=== PATIENT | male | born 1975 | race Caucasian/White ===

== ENCOUNTER 2022-09-05 01:04 | Day surgery (SDC) | payer BC, SELFPAY ==
[2022-08-25 13:23] VITALS: BMI 26.6
[2022-09-05 08:35] VITALS: BP 117/84; PULSE 65; RESP 18; TEMP 36.9; O2SAT 100
[2022-09-05] MEDS: LACTATED RINGERS 1,000 ML 150 ML IV CONT (08:44)
--- NOTE | 2022-09-05 09:05 | P.PNAN_ITS ---
Anes - Initial Pre Proc Eval Procedure: Operation Date: 09/05/22 10:00 Proposed Procedures p Screening Colonoscopy - Ahsan Rose MD Date/Time: 09/05/22 09:05 Surgeon: Ahsan Rose MD Pre Op Diagnosis: neoplasm screening Patient Data Age: 47 Gender: M Height: 1.75 m Weight: 78.4 kg Last Vital Signs Temp 36.9 C 09/05/22 08:35 Pulse 65 09/05/22 08:35 Resp 18 09/05/22 08:35 BP 117/84 09/05/22 08:35 Pulse Ox 100 09/05/22 08:35 O2 Del Method Room Air 09/05/22 08:35 Allergies Allergy/AdvReac Type Severity Reaction Status Date / Time No Known Allergies Allergy Unknown Verified 09/05/22 08:33 Home Medications Medication Instructions Recorded Confirmed Type multivitamin 1 tablet PO DAILY 08/26/22 08/26/22 History Patient hx anesthesia problems: none Family hx anesthesia problems: none Results Review: All pre-operative results and documents have been reviewed as part of the pre- operative evaluation. PMF Social History Social History Smoking status: Light tobacco smoker Tobacco type: cigarettes Additional smoking assessment comments: off and on; occasional use Living arrangements: with family Anes - Eval Final PreProcedure Day of Procedure 09/05/22 09:05 Patient weight: overweight Heart: regular rate and rhythm Lungs: clear to auscultation and normal air movement Airway: Mallampati scale class II Neurological: alert and oriented Last oral intake: >/= 8 hours ASA classification: II Emergent: no Anesthetic plan: proceed Anesthesia type and monitoring: general GIVS Results Review: All pre-operative results and documents have been reviewed as part of the pre- operative evaluation. Informed Consent: The patient's anesthetic plan and its attendant risks and benefits were discussed with the patient/family/POA. Questions were solicited and answers provided to the satisfaction of the patient/family/POA.
--- NOTE | 2022-09-05 09:20 | P.HP_ITS ---
History of Present Illness History of Present Illness Consent: Risks, benefits, and alternatives have been discussed and questions answered. Patient agrees to proceed with procedure. Chief complaint: neoplasm screening Narrative: Vinicio Murray is a 47 year old male Presents for screening colonoscopy. Patient's current weight appetite bowel movements are normal. Patient denies abdominal pain. He has had no bleeding. Family history is significant that it grandfather had colon cancer. There are no first-degree relatives that we are aware of with colon polyps or cancer. Review of Systems Review of Systems: Review of systems noncontributory. [facility] Social History Social History Smoking status: Light tobacco smoker Tobacco type: cigarettes Additional smoking assessment comments: off and on; occasional use Living arrangements: with family Meds Home Medications and Allergies Home Medications Medication Instructions Recorded Confirmed Type multivitamin 1 tablet PO DAILY 08/26/22 08/26/22 History Allergies Allergy/AdvReac Type Severity Reaction Status Date / Time No Known Allergies Allergy Unknown Verified 09/05/22 08:33 Vital Signs Vital Signs - 24 hr 09/05/22 08:35 Temperature 98.4 F Pulse Rate 65 Respiratory Rate 18 Blood Pressure 117/84 Pulse Oximetry 100 Oxygen Delivery Room Air Exam Narrative: Physical exam reveals patient to be alert. Vital signs stable. HEENT exam is unremarkable. Patient is anicteric. Lungs are clear to auscultate patient and percussion. Heart is without murmur or extra sounds. Abdomen bowel sounds are present soft nontender with no organomegaly. Digital external rectal exam is normal. Assessment and Plan Assessment and plan (1) Encounter for screening colonoscopy: Code(s): Z12.11 - Encounter for screening for malignant neoplasm of colon Status: Acute Assessment and Plan: Patient presents today for screening colonoscopy. Further recommendations may be given after endoscopy.
[2022-09-05] MEDS: SIMETHICONE ORAL SUSPENSION 20 MG/0.3 ML 30 ML BOTTLE 0.6 ML IRRIGATION (10:03)
[2022-09-05 10:11] VITALS: BP 114/71; PULSE 72; RESP 16; O2SAT 97
[2022-09-05 10:21] VITALS: BP 123/78; PULSE 69; RESP 16; O2SAT 98
[2022-09-05 10:31] VITALS: BP 125/73; PULSE 67; RESP 20; O2SAT 100
== END 2022-09-05 10:40 | disposition home or self-care (01) ==
PROVIDERS: PCP Nurse Practitioner Family; Visit Provider Internal Medicine Gastroenterology
PROC: 0DJD8ZZ Inspection of Lower Intestinal Tract, Via Natural or Artificial Opening Endoscopic (ICD-10-PCS; CPT 45378; principal; 2022-09-05 10:00)
DX: Z12.11 Encounter for screening for malignant neoplasm of colon (principal); K62.1 Rectal polyp; K64.8 Other hemorrhoids; Z72.0 Tobacco use
CPT/HCPCS: 45385; 88305; J2704; J7120

== ENCOUNTER 2025-04-25 17:30 | Emergency (ER) | payer BC, SELFPAY ==
--- NOTE | ~2025-04-25 | CT_ITS ---
CT brain wo con HISTORY:dizziness COMPARISON: None. TECHNIQUE: Axial images were obtained of the head without intravenous contrast. FINDINGS: No acute intracranial hemorrhage, mass effect or midline shift. No extra-axial fluid collections. The calvarium is intact. Visualized paranasal sinuses and mastoid air cells are clear. IMPRESSION: No acute intracranial hemorrhage or extra axial fluid collections. All CT scans at this facility are performed using low dose modulation techniques as appropriate to perform exam including the following: automated exposure control; use of iterative reconstruction technique; adjustment of the mA and/or kV according to patient size (this includes techniques or standardized protocols for targeted exams where dose is matched to indication/reason for exam). Reviewed, dictated and finalized at location S. NG HOST IMPRESSION: No acute intracranial hemorrhage or extra axial fluid collections. All CT scans at this facility are performed using low dose modulation techniqu es as appropriate to perform exam including the following: automated exposure c ontrol; use of iterative reconstruction technique; adjustment of the mA and/or kV according to patient size (this includes techniques or standardized protocol s for targeted exams where dose is matched to indication/reason for exam).
--- NOTE | 2025-04-25 18:04 | ECG_ITS ---
Test Date: 2025-04-25 18:36:28 Measurements Intervals [place] Rate: 71 P: 12 SD: 139 QRS: 19 QRSD: 93 T: 23 QT: 392 QTc: 427 Interpretive Statements SINUS RHYTHM No previous ECG available for comparison Electronically Signed On 04-26-2025 10:51:44 TRACK BROOM OPERATOR by Shoaib Barirentos D.O
[2025-04-25 18:09] VITALS: BP 113/78; PULSE 73; RESP 16; TEMP 36.6; O2SAT 98
[2025-04-25 18:16] VITALS: PULSE 73
[2025-04-25 18:39] LABS: Hematocrit 43.0 % (42.0-52.0); Hemoglobin 14.5 g/dL (14.0-18.0); Immature Granulocyte Percent A 0.1 % (0-0.5); Lymphocytes Absolute Auto 2.71 K/mm3 (0.9-3.2); Mean Corpuscular HGB Conc 33.7 g/dl (32-36); Mean Corpuscular Hemoglobin 29.8 pg (26-34); Mean Corpuscular Volume 88.5 fl (80-100); Nucleated Red Blood Cells Absolute Auto 0.000 K/mm3 (0.0-0.012); Nucleated Red Blood Cells Perc 0.0 % (0.0-0.2); Platelet Count Result 294 k/mm3 (150-375); Red Blood Count 4.86 M/mm3 (4.6-6.20); White Blood Count 7.2 K/mm3 (4.5-10.0)
[2025-04-25 18:50] LABS: Anion Gap 7 mmol/L (4-12); Blood Urea Nitrogen 14 mg/dL (9-20); Calcium 8.7 mg/dL (8.4-10.2); Carbon Dioxide 26 mmol/L (22-30); Chloride 103 mmol/L (98-107); Estimated CRCL calculation 81 ml/min; Estimated Glomerular Filt Rate > 60; Glucose 110 mg/dL (65-110); Potassium 4.3 mmol/L (3.4-5.0); Sodium 136 mmol/L (137-145)
--- NOTE | 2025-04-25 19:36 | ED_ITS ---
HPI - Dizziness General Chief Complaint: Dizziness Stated Complaint: lightheaded, dizzy, blurred vision Time Seen by Provider: 04/25/25 17:48 Source: patient and family Mode of arrival: ambulatory Limitations: no limitations History of Present Illness HPI Narrative: 50-year-old otherwise healthy here with a complains of sudden onset of dizziness. Patient states every time he turns in certain direction he gets extremely dizzy associated with mild nausea however by the time he got to the ER his symptoms have subsided. He denies any chest pain or shortness of breath. No motor weakness. No previous history of stroke. MD elicited complaint: vertigo Onset (ago): day(s) (1) Timing: sudden onset Severity: moderate Description: sense of movement, room spinning and off-balance History of similar symptoms: No Exacerbating factors: movement/ambulation Relieving factors: remaining still Associated symptoms: denies other symptoms Associated neuro symptoms: other ( Nausea) Stroke scale total: 0 Related Data Home Medications ?Medication ?Instructions ?Recorded ?Confirmed ?Last Taken ?Type multivitamin 1 tablet PO DAILY 08/26/22 0 08/26/22 09/04/22 History Allergies Allergy/AdvReac Type Severity Reaction Status Date / Time No Known Allergies Allergy Unknown Verified 04/25/25 18:16 Review of Systems 2 Review of Systems: All systems reviewed & are unremarkable except as noted in HPI and below Constitutional: Constitutional: Reports no additional constitutional complaints Eyes: Eyes: Reports no additional eye complaints ENT: Reports system reviewed and no additional complaints, except as documented Cardiovascular: Cardiovascular: Reports no additional cardiovascular complaints Respiratory: Respiratory: Reports no additional respiratory complaints Gastrointestinal: Gastrointestinal: Reports no additional gastrointestinal complaints Musculoskeletal: Musculoskeletal: Reports no additional musculoskeletal complaints Neurologic: Reports system reviewed and no additional complaints, except as documented PMFSH Social History Social History Smoking status: Light tobacco smoker Tobacco type: cigarettes Additional smoking assessment comments: off and on; occasional use Living arrangements: with family Exam 2 Narrative: GENERAL: Well-appearing, well-nourished, and in no acute distress. HEAD: Normocephalic, atraumatic. EYES: PERRLA and EOMI. ENT: Nares clear, no rhinorrhea or epistaxis. Mucous membranes moist. NECK: Supple. CHEST: Clear to auscultation. No respiratory distress. HEART: Regular rate and rhythm. No murmur heard. Normal peripheral pulses. ABDOMEN: Soft, nontender, nondistended, normal active bowel sounds. EXTREMITIES: Normal range of motion. No edema. SKIN: Warm, dry, no rash. NEURO: No focal deficits. Alert and oriented x3. PSYCH: Normal mood and affect. Course Course Emergency Course: Patient remained asymptomatic while he was here in the ER had no further episodes of dizziness. I did inform him and his about the lab work, CT findings. He feels comfortable going home. Vital Signs Vital signs: Vital Signs Temperature 36.6 C 04/25/25 18:09 Pulse Rate 73 04/25/25 18:09 Respiratory Rate 16 04/25/25 18:09 Blood Pressure 113/78 04/25/25 18:09 Pulse Oximetry 98 04/25/25 18:09 Oxygen Delivery Room Air 04/25/25 18:09 Temperature 36.6 C 04/25/25 18:09 Pulse Rate 73 04/25/25 18:16 Respiratory Rate 16 04/25/25 18:09 Blood Pressure 113/78 04/25/25 18:09 Pulse Oximetry 98 04/25/25 18:09 Oxygen Delivery Room Air 04/25/25 18:09 MDM - Dizziness Differential Diagnosis Differential diagnosis: Likely benign paroxysmal positional vertigo, orthostatic hypotension, vertebral basilar insufficiency, cerebrovascular accident and acute vestibular neuronitis Medical Records Attestation: I reviewed the patient's medical records. Lab Data Attestation: I reviewed the patient's lab results. 04/25/25 18:32 04/25/25 18:32 Labs: Lab Results 04/25/25 Range/Units 18:32 WBC 7.2 (4.5-10.0) K/mm3 RBC 4.86 (4.6-6.20) M/mm3 Hgb 14.5 (14.0-18.0) g/dL Hct 43.0 (42.0-52.0) % MCV 88.5 (80-100) fl MCH 29.8 (26-34) pg MCHC 33.7 (32-36) g/dl RDW 12.8 (11.5-14.5) % Plt Count 294 (150-375) k/mm3 MPV 8.9 (7.4-10.4) fl Immature Gran % (Auto) 0.1 (0-0.5) % Neut % (Auto) 48.2 (45.5-73.1) % Lymph % (Auto) 37.7 (18.3-44.2) % [place] % (Auto) 7.8 (2.6-8.5) % Eos % (Auto) 5.2 H (0-4.4) % Baso % (Auto) 1.0 (0.2-1.2) % Lymph # (Auto) 2.71 (0.9-3.2) K/mm3 [place] # (Auto) 0.6 (0.1-0.6) K/mm3 Eos # (Auto) 0.4 H (0-0.3) K/mm3 Baso # (Auto) 0.1 (0.0-0.1) K/mm3 Abs Immat Gran (auto) 0.01 (0.00-0.031) K/mm3 Absolute Neuts (auto) 3.5 (1.3-6.7) K/mm3 Absolute Nucleated RBC 0.000 (0.0-0.012) K/mm3 Nucleated RBC % 0.0 (0.0-0.2) % Sodium 136 L (137-145) mmol/L Potassium 4.3 (3.4-5.0) mmol/L Chloride 103 (98-107) mmol/L Carbon Dioxide 26 (22-30) mmol/L Anion Gap 7 (4-12) mmol/L BUN 14 (9-20) mg/dL Creatinine 1.02 (0.7-1.3) mg/dL Estim Creat Clear Calc 81 ml/min Estimated GFR > 60 (59 - ) Glucose 110 (65-110) mg/dL Calcium 8.7 (8.4-10.2) mg/dL ECG Data EKG #1: ECG completion date: 04/25/25 ECG completion time: 18:36 Ischemic changes: poor r wave progression EKG Interpretation: normal rate (71), sinus rhythm, no ectopy, normal QRS, normal QT and NL axis Discharge Plan Discharge Clinical Impression: Benign paroxysmal positional vertigo Qualifiers: Laterality: unspecified laterality Qualified Code(s): H81.10 - Benign paroxysmal vertigo, unspecified ear Patient Disposition: Home Condition: Stable Instructions: Antibiotic Form, Vertigo (ED) Patient Language: [place] Islander Prescriptions: New meclizine 12.5 mg tablet 12.5 mg PO TID PRN (Reason: dizziness) Qty: 20 0RF No Action multivitamin [Men's Multi-Vitamin] Tablet 1 tablet PO DAILY Follow-up/Referrals: Danilo,MARIE Bhardwaj [Primary Care Provider, Unknown] Time of Disposition: 19:37 Quality Stroke Date of last known normal: 04/25/25 Stroke Scale Stroke Scale 1: Stroke scale date:: 04/25/25 1a Level of consciousness: alert-0 1b Level of consciousness questions: answers both correctly-0 1c Level of consciousness commands: obeys both correctly-0 2 Best gaze: normal-0 3 Visual: no visual loss-0 4 Facial palsy: normal-0 5a Motor: left arm: no drift-0 5b Motor: right arm: no drift-0 6a Motor: left leg: no drift-0 6b Motor: right leg: no drift-0 7 Limb ataxia: absent-0 8 Sensory: normal-0 9 Best language: no aphasia-0 10 Dysarthria: normal-0 11 Extinction and inattention: no abnormality-0 Level:: 0
[2025-04-25 19:57] VITALS: BP 115/76; PULSE 76; RESP 16; O2SAT 99
--- OUTSIDE RECORDS SUMMARY | 2025-04-25 20:23 | XMS_ITS | Patient Health Record ---
Author Organization [facility] As [employer] Address [facility] [address] [facility] [address] [place] [address] Care Team Providers Care Letter Of Credit Document Examiner Name Role Phone Daron Tate Unavailable [phone] Reason For Referral No Information Plan Of Treatment No Information
--- OUTSIDE RECORDS SUMMARY | 2025-04-25 20:23 | XMS_ITS | Clinical Summary ---
Author Organization [facility] [place] [address] [facility] Address [address] [place] [address] Care Team Providers Care Bookmobile Driver Name Role Phone Lashae Carrasco NP Primary Care Provider [phone] Allergies No known active allergies Medications cyanocobalamin (Vitamin B-12) 100 mcg tabletIndicatio ns:Prevention of Vitamin B12 Deficiency Take 100 mcg by mouth daily Active methylPREDNISol one (MEDROL DOSEPACK) 4 mg DosepackIndicat ions:Left sided sciatica Take as directed on package. 21 tablet Active Additional Information Patient not taking.Reported on 02/05/2025 Active Problems Problem Noted Date Diagnosed Date BMI 28.0-28.9,adult 06/30/2022 Assessment & Plan (06/30/2022 3:21 PM SALES AMBASSADOR): Weight/BMI is in healthy range. Continue healthy lifestyle to maintain. Screening for colon cancer 06/30/2022 Encounters Date Type Department Care Team Description 04/25/2025 Orders Only [facility] Family Medicine [address] [place] [address] Lashae Carrasco NP Near syncope (Primary Dx) 04/21/2025 9:00 AM SALES AMBASSADOR Office Visit [facility] Medicine Physicians [facility] Surgery [address] [place] [address] Elevated PSA (Primary Dx) 02/05/2025 9:00 AM CDT [facility] [address] [facility] 11[address] [place] [address] [place] [address] Jax Crawford MD Elevated PSA (Primary Dx) 01/29/2025 Orders Only [facility] [address] [place] [address] ProviderMartin MD 01/23/2025 Results Follow-Up [facility] [address] [place] [address] Lashae Carrasco NP Hemoglobin A1c, Comprehensive metabolic panel, Lipid panel, Additional followed-up results: 3 from Last 3 Months Immunizations Immunization Administration Dates Next Due Influenza, Unspecified 01/16/2025(Deferr ed: Patient Refused),06/14/2021(Deferred: Patient Refused) Surgical History Surgery Date Site/Laterality Comments APPENDECTOMY Family History Medical History Relation Name Comments Hypertension Father Colon cancer Maternal Grandfather Thyroid disease Maternal Grandmother Diabetes Mother Hyperlipidemia Mother Hypertension Mother Diabetes Paternal Grandmother Heart disease Paternal Grandmother Relation Name Status Comments Father Alive Maternal Grandfather Maternal Grandmother Mother Alive Paternal Grandfather Paternal Grandmother Social History Tobacco Use Types Packs/Day Years Used Date Smoking Tobacco: Some Days Cigarettes Smokeless Tobacco: Current Chew Tobacco Cessation:Ready to Q uit: Not Asked; Counseling Given: Not Answered AUDIT-C Answer Date Recorded Q1: How often do you have a drink containing alcohol? Never 01/16/2025 Q2: How many drinks containi ng alcohol do you have on a typical day when you are drinking? Patient does not drink Q3: How often do you have si x or more drinks on one occasion? Never 01/16/2025 PHQ-2 Answer Date Recorded PHQ-2 Total Score (If total score is 3 or more points, staff should administer the PHQ-9) 0 01/16/2025 Sex and Gender Information Value Date Recorded Sex Assigned at Not on file Legal Sex Male 9:58 AM SALES AMBASSADOR Gender Identity Not on file Sexual Orientation Not on file Last Filed Vital Signs Vital Sign Reading Time Taken Comments Blood Pressure 112/62 01/16/2025 4:10 PM CDT Pulse 74 01/16/2025 4:10 PM CDT Temperature 36.9 C (98.4 F) 01/16/2025 4:10 PM CDT Respiratory Rate 18 01/16/2025 4:10 PM CDT Oxygen Saturation 96% 01/16/2025 4:10 PM CDT Inhaled Oxygen Concentration - - Weight 83.6 kg (184 lb 3.2 oz) 01/16/2025 4:10 P M CDT Height 170.9 cm (5' 7.3) 01/16/2025 4:10 PM CDT Body Mass Index 28.59 01/16/2025 4:10 PM CDT Plan of Treatment Health Maintenance Due Date Last Done Comments Hepatitis C Screening 1977 DTaP/Tdap/Td Vaccine (1 - Tdap) 02/03/1988 Hepatitis B Screening 1995 Pneumococcal vaccine <65 (1 of 2 - PCV) 02/03/1996 Regular Well Visit/Exam 18-64 06/30/2023 06/30/2022 Influenza Vaccine (#1) 2025 Depression Screening 01/16/2026 01/16/2025, 06/30/19 23 Colon Cancer Screening-Colonoscopy 09/06/20272022, 09/05/2022 Procedures Procedure Name Priority Date/Time Associated Diagnosis Comments COLONOSCOPY Routine 09/05/2022 from Last 3 Months or Most Recently Relevant to Health Maintenance Results * (ABNORMAL) Colonoscopy (09/05/2022) Anatomical Region Laterality Modality Other us Historical Provider ENDOSCOPY PROCEDURES Edit ed Result - Final from Last 3 Months or Most Recently Relevant to Health Maintenance [place] Care Teams Bookmobile Driver Relationship Specialty Start Date End Date Lashae Carrasco NP PCP - General Internal Medicine 06/23/22
--- OUTSIDE RECORDS SUMMARY | 2025-04-25 20:23 | XMS_ITS | Encounter Summary ---
Author Organization [facility] Address [address] [place] [address] Care Team Providers Care Kitchen And Counter Worker Name Role Phone Lashae Carrasco NP Primary Care Provider [phone] Reason for Referral * Consultation (Routine) - Pending Review Specialty Diagnoses / Procedures Referred By Contgillian t Referred To Contact Cardiology Diagnoses Near syncope Lashae Carrasco NP [address] [place] [address] Phone: tel: fax: Krystina Mcmullen MD [address] [place] [id number] Phone: tel: fax: Referral ID Status Reason Start Date Expiration Date Visits Requested Visits Authorized [id number] Pending Review Specialty Services Required 5 05/25/2026 1 1 Question Answer Please select the performing region: External Order [171] To Provider NOTE: we will do our best to honor your provider preference, but scheduling the patient in a timely manner in our clinic will take precedence. KRYSTINA MCMULLEN [[id number]] # of visits: 1 Comments [facility] Cardiology Near syncope OPERATIVE EDUCATOR Encounter Details Date Type Department Care Team (Late st Contact Info) Description 04/25/2025 Orders Only [facility] Family Medicine [address] [place] [address] Lashae Carrasco NP [address] [facility] [address] [place] [address] Near syncope (Primary Dx) Social History Tobacco Use Types Packs/Day Years Used Date Smoking Tobacco: Some Days Cigarettes Smokeless Tobacco: Current Chew AUDIT-C Answer Date Recorded Q1: How often [...] on file Legal Sex Male 9:58 AM PERIOPERATIVE EDUCATOR Gender Identity Not on file Sexual Orientation Not on file documented as of this encounter Progress Notes * Mara Camacho LPN - 04/25/2025 2:01 PM CST Referral placed per PCP OPERATIVE EDUCATOR documented in this encounter Plan of Treatment Scheduled Referrals Name Type Priority Associated Diagnoses Order Schedule Ambulatory referral to Cardiology Outpatient Referral Routine Near syncope Expected: 05/09/2025 (Approximate), Expires: 04/25/2026 documented as of this encounter Visit Diagnoses Diagnosis Near syncope- Primary documented in this encounter Care Teams Kitchen And Counter Worker Relationship Specialty Start Date End Date Lashae Carrasco NP PCP - General Internal Medicine 06/23/22 documented as of this encounter
== END 2025-04-25 19:58 | disposition home or self-care (01) ==
PROVIDERS: Emergency Provider Family Medicine; PCP Nurse Practitioner Family
DX: H81.10 Benign paroxysmal vertigo, unspecified ear (principal)
CPT/HCPCS: 36415; 70450; 80048; 85025; 93005; 99284